=== PATIENT | male | born 1940 | race Caucasian/White ===

== ENCOUNTER 2017-08-03 09:57 | Outpatient (CLI) | payer MEDICARE | END 2017-08-03 09:58 | disposition home or self-care (01) | LOC: BICRAD 09:57 | PROVIDERS: ATTEND Family Medicine | DX: J06.9 Acute upper respiratory infection, unspecified (principal); R91.8 Other nonspecific abnormal finding of lung field | CPT/HCPCS: 71046 ==

== ENCOUNTER 2018-10-13 14:00 | Emergency (ER) | payer MEDICARE ==
[~2018-10-13 14:00] MED LIST: ISOVUE-370 76%-LOCM 1 ML ONE
[2018-10-13 14:32] LABS: #Basophils 0.1 thou/uL (0.0-0.2); #Eosinphils 0.2 thou/uL (0.0-0.7); #Lymphocytes 1.1 thou/uL (1.20-3.40); #Monocytes 0.5 thou/uL (0.11-0.59); #Neutrophils 2.2 thou/uL (1.40-6.50); %Basophils 1.6 % (0.0-1.0); %Eosinophils 4.6 % (0.0-10.0); %Lymphocytes 27.3 % (21.0-51.0); %Monocytes 12.4 % (0.0-10.0); %Neutrophils 54.1 % (42.0-75.0); Hemoglobin 15.8 g/dL (14.0-18.0); Mean Corpuscular HGB CONC 34.1 g/dL (32.0-36.0); Mean Corpuscular Hemoglobin 33.2 pg (27.0-31.0); Mean Corpuscular Volume 97.5 fL (78.0-98.0); Mean Platelet Volume 7.6 fL (7.4-10.4); Platelet Count 231 thou/uL (130-400); RBC Distribution Width 11.8 % (11.5-14.5); Red Blood Cell (RBC) Count 4.75 mill/uL (4.70-6.10)
--- NOTE | 2018-10-13 14:43 | RAD ---
XR Chest 1 View Portable HISTORY: Syncopal episode COMPARISON: 11/11/2016 study FINDINGS: Heart size is within normal limits for portable technique. There are atherosclerotic change s of the aorta. The lungs are clear of infiltrates. No significant bony findings. IMPRESSION: No active intrathoracic disease.
[2018-10-13 14:52] LABS: ALT (SGPT) 14 U/L (8-55); AST (SGOT) 17 U/L (5-34); Albumin 4.2 g/dL (3.4-4.8); Alkaline Phosphatase 55 U/L (40-150); Anion Gap 14 mmol/L (10-20); BUN (Urea Nitrogen) 15 mg/dL (8.4-25.7); Bilirubin, Total 0.8 mg/dL (0.2-1.2); CK (CPK) 93 U/L (30-200); Calc. Creatinine Clearance 0 mL/min (70-130); Calcium 9.8 mg/dL (7.8-10.44); Carbon Dioxide 25 mmol/L (23-31); Chloride 105 mmol/L (98-107); Estimated GFR-MDRD 48; Globulin 2.3 g/dL (2.4-3.5); Glucose 133 mg/dL (83-110); Protein, Total 6.5 g/dL (5.8-8.1); Sodium 139 mmol/L (136-145)
--- NOTE | 2018-10-13 15:51 | CT ---
CT angiogram of chest performed with intravenous contrast enhancement with 3-D reconstructions HISTORY: Elevated d-dimer shortness of breath. COMPARISON: None. FINDINGS: The lungs are clear of any infiltrative process. No pulmonary nodules or pleural effusions. No significant mediastinal or hilar adenopathy. There is some coronary artery calcifications present. The thoracic aorta is normal in caliber. There is good pulmonary artery opacification and no CT evidence for pulmonary embolus. Visualized liver parenchyma is normal. Hypodensities involving the right kidney appear to represent c ysts. Of incidental note is a right subclavian vein stenosis. IMPRESSION: No CT evidence of pulmonary embolus.
== END 2018-10-13 16:50 | disposition home or self-care (01) ==
LOC: ERS 14:00
DX: T67.5XXA Heat exhaustion, unspecified, initial encounter (principal); R55 Syncope and collapse; Z79.899 Other long term (current) drug therapy
CPT/HCPCS: 36415; 36416; 71045; 71275; 80053; 82550; 83880; 84484; 85025; 85379; 93005; 96360; 96361; Q9966

== ENCOUNTER 2019-01-03 12:54 | Outpatient (CLI) | payer MEDICARE ==
--- NOTE | 2019-01-03 13:55 | RAD ---
PA AND LATERAL VIEWS CHEST: Date: 01/03/19 HISTORY: Cough and chest pain. FINDINGS: The heart size is normal. The aorta is tortuous. The lungs are well expanded without lobar consolidat ion, pneumothoraces, or pleural effusions. There are degenerative changes in the spine. IMPRESSION: No radiographic evidence of acute cardiopulmonary process. POS: OFF
== END 2019-01-03 12:55 | disposition home or self-care (01) ==
LOC: BICRAD 12:54
PROVIDERS: ATTEND Internal Medicine Hematology & Oncology
DX: R05 Cough (principal); R07.9 Chest pain, unspecified; M05.44 Rheumatoid myopathy with rheumatoid arthritis of hand; M35.3 Polymyalgia rheumatica
CPT/HCPCS: 71046; 85652

== ENCOUNTER 2019-09-16 13:08 | Outpatient (CLI) | payer MEDICARE ==
[2019-09-16] MEDS ORDERED: Magnevist 469MG/ML 20 ML VIAL ONE (14:05)
--- NOTE | 2019-09-16 17:19 | MRI ---
MRI BRAIN WITH AND WITHOUT IV CONTRAST: History: 79-year-old male with TIA, confusion which has resolved now. FINDINGS: Correlation is made with CT scan of 08-28-2019. There are changes of cortical atrophy. There are multiple foci of T2 prolongation in the periventricu lar white matter consistent with chronic small vessel ischemic disease. No restricted diffusion is se en. The ventricular size is appropriate and the basilar cisterns are patent. No evidence of infarct, hemorrhage, mass, midline shift, or abnormal extraaxial fluid collections are seen. No abnormal post contrast enhancement is noted. The visualized paranasal sinuses and mastoid a ir cells are well aerated. IMPRESSION: Chronic changes. No evidence of acute intracranial process or mass. POS: [facility]
== END 2019-09-16 13:09 | disposition home or self-care (01) ==
LOC: TBSIIMAG 13:08
PROVIDERS: ATTEND Family Medicine
DX: G45.9 Transient cerebral ischemic attack, unspecified (principal)
CPT/HCPCS: 70553; A9579

== ENCOUNTER 2019-12-10 09:01 | Outpatient (CLI) | payer MEDICARE ==
--- NOTE | 2019-12-10 11:46 | CT ---
CT ABDOMEN AND PELVIS WITH IV CONTRAST: Oral contrast was administered. Date: 12/10/2019 INDICATION: Abdominal pain. History of prostate cancer. No comparison studies. FINDINGS: Lung bases clear. Liver, spleen, and pancreas appear unremarkable. Stomach and duodenum unremarkable. Adrenal glands normal. There is a 3.5 cm cyst from the superior right kidney. 1.0 cm in mid right renal cortex. There are ot her tiny low density foci in both kidneys which are too small to characterize. No enhancing renal mas s. No hydronephrosis. Mild perinephric stranding bilaterally, which is nonspecific. Small bowel loops appear normal. Appendix appears normal. Diverticulosis of the left colon and sigmoi d. Colon wall appears normal. The aorta shows atherosclerotic calcification. No aneurysm. No adenopathy, mass, or free fluid. Images through the pelvis show unremarkable urinary bladder. Postoperative changes in the pelvis cons istent with prostatectomy. The osseous structures are unremarkable. There is no evidence of lytic or blastic process. Degenerative changes in the spine with bridging osteophytes in the lower thoracic and upper lumbar sp ine. IMPRESSION: No acute process identified. Nonacute findings as described above. POS: [facility]
== END 2019-12-10 09:02 | disposition home or self-care (01) ==
LOC: SCSCT 09:01
PROVIDERS: ATTEND Internal Medicine Gastroenterology
DX: G45.9 Transient cerebral ischemic attack, unspecified (principal); R10.13 Epigastric pain; M35.3 Polymyalgia rheumatica; M48.00 Spinal stenosis, site unspecified; M25.78 Osteophyte, vertebrae; M47.815 Spondylosis without myelopathy or radiculopathy, thoracolumbar region; Z86.010 Personal history of colon polyps
CPT/HCPCS: 74177